=== PATIENT | female | born 1970 | race Caucasian/White ===

== ENCOUNTER → 2016-11-26 | Outpatient (CLI) | payer OTHER ==
--- NOTE | 2016-11-26 23:12 | MR ---
EXAMINATION TYPE: MR lumbar spine wo con DATE OF EXAM: 11/26/2016 9:51 PM COMPARISON: 10/06/2014 HISTORY: back and leg pain x2 years mostly left side TECHNIQUE: Multiplanar, multisequence images of the lumbar spine were acquired. Lumbar vertebra have fairly normal alignment. There is decreased signal and disc space narrowing from L3 to S1. This is more severe at L5-S1. There is a moderate posterior disc herniation at L5-S1 centr ally and towards the left side. There is bilateral neural foraminal narrowing at L5-S1 due to disc sp elizabeth narrowing. Narrowing is much worse on the left side. There is no compression fracture. Posterior elements are intact. There is no paraspinal mass. Sacroiliac joints are unremarkable. I see no focal bone destruction. There is mild posterior concentric disc bulge at L4-5.. IMPRESSION: Spondylosis in the lower lumbar spine from L3 to S1. There is posterior L5-S1 disc herniation that is increased in size compared to last MR scan. No significant spinal stenosis seen however. Stable conc entric small disc herniation posteriorly at L4-5. There is neural foraminal impingement on the left s galo more than the right at L5-S1 due to disc herniation and facet arthropathy and disc space narrowin g.
== END | disposition home or self-care (01) ==
LOC: RADMRIMAIN 21:02
PROVIDERS: ATTEND Psychiatry & Neurology Neurology
DX: M48.06 Spinal stenosis, lumbar region (principal); M51.27 Other intervertebral disc displacement, lumbosacral region; M47.817 Spondylosis without myelopathy or radiculopathy, lumbosacral region; M46.96 Unspecified inflammatory spondylopathy, lumbar region
CPT/HCPCS: 72148

== ENCOUNTER → 2017-04-09 | Outpatient (CLI) | payer BC ==
--- NOTE | 2017-04-09 08:50 | CT ---
EXAMINATION TYPE: CT abdomen pelvis w con DATE OF EXAM: 04/09/2017 COMPARISON: NONE HISTORY: 47-year-old female abdominal pain, abdominal hernia. TECHNIQUE: Contiguous axial scanning of the abdomen and pelvis following administration of 100 ml Omn ipaque 300 IV contrast. Delayed images through the kidneys and coronal/sagittal reconstructions perf ormed. CT DLP: 457.90 mGycm Automated exposure control for dose reduction was used. FINDINGS: The heart is normal size with trace anterior basilar pericardial fluid. Lung bases clear without pleu ral effusion. Very small hiatal hernia is noted. A 2.5 cm cyst along the left hepatic lobe. Otherwise, no focal liver lesion of the liver does measure large at 19.7 cm craniocaudal. The bile duct appears mildly dilated at 1.1 cm though with normal dis allen tapering. Portal venous system is patent. The gallbladder, adrenal glands, kidneys, and pancreas appear within normal limits. There is an inferior splenule and 8.9 cm enhancing lesion in the anterior spleen which seems to follo w the blood pool on both series. Findings suggest a small hemangioma. Retroaortic left renal vein. Scattered nonenlarged and borderline to mildly enlarged mesenteric lymph nodes are present measuring up to 7 mm, for example, coronal image 19. Short segments of mild circumferential colonic wall thickening suggested in the mid transverse colon, coronal image 14 probably relates to underdistention. The appendix is visualized and shows very mild thickening. 8 to 9 mm, axial image 58 and coronal imag e 19. In addition, there may be minimal adjacent fat stranding versus prominent small bowel vessels. Bladder is partially urine distended. Multiple pelvic phleboliths. Uterus appears surgically absent. Follicular change in the right ovary and a 2.4 cm dominant follicle or functional cyst within the lef t ovary. No abnormal fluid collection in the pelvis; no definite suspicious lymphadenopathy. No inguinal, femoral canal, or abdominal wall hernia is identified. There may be a very tiny neurogen ic need type hernia containing omental fat through an 8 mm wide defect of the anterior midline diaphr agm, coronal image 6, sagittal image 62, and axial image 4. Bones: Mild degenerative changes at the hips and pubic symphysis. Additional degenerative changes low er lumbar spine. No osseous destructive process. IMPRESSION: 1. MILD THICKENING OF THE APPENDIX. THERE ARE EITHER TINY ADJACENT MESENTERIC VESSELS OR MILD PERIAPP ENDICEAL FAT STRANDING. CORRELATE FOR ANY RIGHT LOWER QUADRANT PAIN TO EXCLUDE MILD APPENDICEAL INFLA MMATION. 2. MILD DILATATION OF THE BILE DUCT (1.1 CM) MAY BE NORMAL FOR THIS PATIENT. CORRELATE WITH ALKALINE PHOSPHATASE AND BILIRUBIN LEVELS. 3. SCATTERED NONENLARGED AND BORDERLINE TO MILDLY ENLARGED MESENTERIC LYMPH NODES MEASURING UP TO 7 M M LIKELY REACTIVE/POST INFLAMMATORY. 4. TINY HIATAL HERNIA AND TINY FAT-CONTAINING MORGAGNI HERNIA THROUGH AN 8 MM ANTERIOR MIDLINE DIAPHR AGMATIC DEFECT.
== END | disposition home or self-care (01) ==
LOC: RADCTMAIN 06:51
PROVIDERS: ATTEND Surgery
DX: K44.9 Diaphragmatic hernia without obstruction or gangrene (principal); K83.8 Other specified diseases of biliary tract; K38.9 Disease of appendix, unspecified; R59.0 Localized enlarged lymph nodes
CPT/HCPCS: 74177; Q9967

== ENCOUNTER → 2017-04-27 | Outpatient (CLI) | payer BC ==
--- NOTE | 2017-04-27 08:25 | US ---
EXAMINATION TYPE: US gallbladder DATE OF EXAM: 04/27/2017 COMPARISON: Correlation CT 04/09/2017 CLINICAL HISTORY: 47-year-old female K80.10 Cholecystitis. TECHNIQUE: Multiple sonographic images of the right upper quadrant are obtained. FINDINGS: Liver Length: 16.6 cm Gallbladder Wall: 0.1 cm CBD: 0.7 cm Right Kidney: 11.0 x 3.9 x 5.0 cm Pancreas: Tail partially obscured by overlying bowel gas Liver: left lobe cyst measuring 2.3 x 1.7 x 2.3cm Gallbladder: No abnormal gallbladder distention, wall thickening, pericholecystic fluid, or shadowin g calculi. Evidence for sonographic Dominguez's sign: no CBD: Mildly dilated. Right Kidney: Tiny 3 mm echogenic focus in the right upper pole. Prominent vascular reflector is poss ible as no calculus is seen on the CT scan. No hydronephrosis. IMPRESSION: 1. No evidence for cholelithiasis or acute cholecystitis. 2. Mild dilatation of the bile duct at 7 mm. Correlate with alkaline phosphatase and bilirubin levels to exclude biliary obstruction. If indicated, MRCP or ERCP can be performed.
== END | disposition home or self-care (01) ==
LOC: RADUSWWP 07:35
PROVIDERS: ATTEND Surgery
DX: K83.8 Other specified diseases of biliary tract (principal)
CPT/HCPCS: 76705

== ENCOUNTER → 2017-12-12 | Outpatient (CLI) | payer BC ==
--- NOTE | 2017-12-12 21:27 | MR ---
EXAMINATION TYPE: MR MRCP DATE OF EXAM: 12/12/2017 COMPARISON: 05/19/2017 HISTORY: Abnormal findings of liver and biliary tract TECHNIQUE: Standard multiplanar, multisequence MRCP was performed per departmental protocol without c ontrast. FINDINGS: There is redemonstration of a bilobed left hepatic simple cyst. Additional smaller hepatic lesions sc attered throughout the hepatic parenchyma appear T2 hyperintense on the prior exam 05/19/2017 compati ble with cysts although they appear less intense on today's examination. As noted on the prior there is slightly low insertion of the cystic duct. The common hepatic duct is bulbous and measures 1.1 cm, unchanged from the prior. Again this could represent a type Janet choledochal cyst. Common bile duct i s nonenlarged measuring 6 mm. However there is tapering the pancreatic head, not well appreciated on the axial images. This is unchanged from the prior. Main pancreatic duct is nondilated. Findings are unchanged from the prior. No cholelithiasis is seen. No gallbladder wall thickening. No right upper q uadrant fat stranding. The kidneys, spleen, and pancreas are unremarkable unenhanced morphology. Small splenule is seen. Adr enal glands are also unremarkable. Bowel is nondilated. No gross evidence of adenopathy. Bone marrow signal is within normal limits. Small right lower thoracic perineural cyst is incidentally seen. Ther e is mild signal dropout of the liver on out of phase imaging indicative of mild hepatic steatosis. IMPRESSION: 1. Stable bulbous enlargement of the common hepatic duct that may represent a type Janet choledochal cy st. 2. Redemonstration of multiple hepatic cysts. 3. Mild hepatic steatosis.
== END | disposition home or self-care (01) ==
LOC: RADMRIMAIN 09:45
DX: K76.0 Fatty (change of) liver, not elsewhere classified (principal); K76.89 Other specified diseases of liver; K83.8 Other specified diseases of biliary tract
CPT/HCPCS: 74181

== ENCOUNTER 2018-01-11 19:09 | Emergency (ER) | payer BC ==
[2018-01-11] MEDS ORDERED: methylPREDNISolone SOD SUCCI 125 MG/2 ML VIAL IM ONE (19:39)
[2018-01-11] MEDS ORDERED: KETOROLAC 30 MG/ML 1 ML VIAL IM STA (19:39)
--- NOTE | 2018-01-11 20:10 | ED ---
General Adult HPI - General Chief complaint: Back Pain/Injury Stated complaint: Hx BACK Sx, BACK PAIN Time Seen by Provider: 01/11/18 19:30 Source: patient, RN notes reviewed Mode of arrival: ambulatory Limitations: no limitations - History of Present Illness Initial comments: 47-year-old female since to the emergency department for a chief complaint of left hip pain. Patient describes the pain as a sharp shooting pain radiating from her left hip down to her groin into her left knee. Patient states she had a laminectomy 4 months ago. Patient states symptoms of back pain had completely resolved at that time. Patient states that she recently started working 2 weeks ago and the pain has reoccurred. Patient has contacted her surgeon and has an appointment in a couple weeks. She will be getting an MRI of the back at that time. Patient denies any bladder or bowel changes. Patient denies any IV drug abuse. Patient has no other complaints at this time including shortness of breath, chest pain, abdominal pain, nausea or vomiting, headache, or visual changes. - Related Data Home Medications Medication Instructions Recorded Confirmed [id number] [phone] 1 each PO Q6HR PRN 11/14/14 12/15/17 [Excedrin] Gabapentin [Neurontin] 300 mg PO TID 02/14/15 12/15/17 ALPRAZolam [Xanax] 0.5 mg PO BID PRN 12/15/17 12/15/17 Docusate Sodium [Dok] 100 mg PO HS 12/15/17 12/15/17 Hydrocodone/Acetaminophen 1 tab PO BID PRN 12/15/17 12/15/17 [Hydrocodon-Acetaminophn 10-325] Levothyroxine Sodium [Synthroid] 175 mcg PO DAILY 12/15/17 12/15/17 Lisinopril [Prinivil] 5 mg PO QAM 12/15/17 12/15/17 Meloxicam [Mobic] 7.5 mg PO BID 12/15/17 12/15/17 Morphine Sulfate [Ms Contin] 30 mg PO BID 12/15/17 12/15/17 Naloxegol Oxalate [Movantik] 25 mg PO HS 12/15/17 12/15/17 Sertraline [Zoloft] 100 mg PO DAILY 12/15/17 12/15/17 tiZANidine [Zanaflex] 4 mg PO BID 12/15/17 12/15/17 Previous Rx's Medication Instructions Recorded predniSONE 50 mg PO DAILY #5 tablet 01/11/18 Allergies Allergy/AdvReac Type Severity Reaction Status Date / Time No Known Allergies Allergy Verified 12/15/17 13:31 Review of Systems ROS Statement: Those systems with pertinent positive or pertinent negative responses have been documented in the HPI. ROS Other: All systems not noted in ROS Statement are negative. Past Medical History Past Medical History: Hypertension, Thyroid Disorder Additional Past Medical History / Comment(s): back pain History of Any Multi-Drug Resistant Organisms: None Reported Past Surgical History: Orthopedic Surgery, Tubal Ligation Additional Past Surgical History / Comment(s): thyroidectomy, rotator cuff repain 09/2014 Past Psychological History: Anxiety Smoking Status: Current every day smoker Past Alcohol Use History: Occasional Past Drug Use History: Marijuana General Exam Limitations: no limitations General appearance: alert, in no apparent distress Head exam: Present: atraumatic, normocephalic, normal inspection Eye exam: Present: normal appearance ENT exam: Present: normal exam, normal oropharynx, mucous membranes moist, TM's normal bilaterally, normal external ear exam Neck exam: Present: normal inspection, full ROM. Absent: tenderness, meningismus, lymphadenopathy Respiratory exam: Present: normal lung sounds bilaterally. Absent: respiratory distress, wheezes, rales, rhonchi, stridor Cardiovascular Exam: Present: regular rate, normal rhythm, normal heart sounds. Absent: systolic murmur, diastolic murmur, rubs, gallop, clicks Extremities exam: Present: full ROM (Full range of motion of the left hip including flexion and extension and abduction.), tenderness (Tenderness to the left SI joint), normal capillary refill (Refill less than 2 seconds and pedal pulse strong on Doppler in left lower extremity), other (Sensation intact in the left lower extremity to light touch.). Absent: pedal edema, joint swelling , calf tenderness (No swelling redness or erythema noted in the left calf.) Back exam: Present: full ROM (Flexion to 90 of the low back.), tenderness ( Tenderness to the left SI joint). Absent: paraspinal tenderness, vertebral tenderness Course Vital Signs 01/11/18 19:17 Temperature 98 F Pulse Rate 97 Respiratory 18 Rate Blood Pressure 206/111 O2 Sat by Pulse 97 Oximetry Medical Decision Making - Medical Decision Making 47-year-old female presents to the emergency department for a chief complaint of low back pain 2 weeks. Patient had back surgery 4 months ago. Pain was resolved. She recently started working and has had shooting pain down her left leg. Patient has been in contact with the surgeon and has an appointment scheduled. Patient will be getting an MRI through the surgeon. Patient states last time she was seen she had Toradol which helped significantly. On exam patient has full range of motion of the left hip. Tenderness to the left SI joint. No tenderness to the left hip or low back. Neurovascular intact in the left lower extremity. Patient was given Toradol and Solu-Medrol in the emergency department which helped significantly with her pain. X-ray of the lumbar spine demonstrates degenerative disc disease in the lower spine. No fracture. Previous surgery noted. Patient likely has sciatica nerve pain in the left lower extremity. Patient will continue her pain meds at home which include [place] and Mobic. Patient denies any diabetes. She will be given a prescription for steroids for the next 5 days. She will return to the emergency Department if she has worsening symptoms such as bladder or bowel changes. Otherwise she will follow up with surgeon and have MRI done. Disposition Clinical Impression: Back pain, Sciatic pain Disposition: HOME SELF-CARE Condition: Good Instructions: Acute Low Back Pain (ED), Sciatica (ED) Additional Instructions: Please continue to take your home pain medications. Take prednisone as directed. If you have worsening symptoms such as difficulty urinating return to the emergency department. Follow-up with surgeon as soon as possible. Follow up with primary care in 1-2 days. Prescriptions: predniSONE 50 mg PO DAILY #5 tablet Is patient prescribed a controlled substance at d/c from ED?: No Referrals: Hiro Suresh MD [Primary Care Provider] - 1-2 days Time of Disposition: 20:30
--- NOTE | 2018-01-11 20:18 | XR ---
EXAMINATION TYPE: XR lumbar spine 2 or 3V DATE OF EXAM: 01/11/2018 COMPARISON: September 18, 2014 HISTORY: Low back pain TECHNIQUE: 3 views FINDINGS: There is apparent L4 laminectomy. There is some narrowing of L4-5 L5-S1 disc spaces. There is no compression fracture. Sacroiliac joints are intact. IMPRESSION: Degenerative disc changes in the lower lumbar spine. No fracture. Previous surgery. Surge ry is new compared to old exam.
[2018-01-11 20:33] VITALS: BP 171/91; PULSE 55; RESP 15; TEMP 98
== END 2018-01-11 20:41 | disposition home or self-care (01) ==
LOC: EC 19:09
DX: M51.16 Intervertebral disc disorders with radiculopathy, lumbar region (principal); I10 Essential (primary) hypertension; E07.9 Disorder of thyroid, unspecified; F41.9 Anxiety disorder, unspecified; F17.200 Nicotine dependence, unspecified, uncomplicated; Z98.51 Tubal ligation status; Z98.890 Other specified postprocedural states; Z79.1 Long term (current) use of non-steroidal anti-inflammatories (NSAID); Z79.891 Long term (current) use of opiate analgesic; Z79.899 Other long term (current) drug therapy
CPT/HCPCS: 72100; 99283; 96372 ×2; J2930; J1885

== ENCOUNTER 2018-01-20 12:56 | Emergency (ER) | payer BC ==
[2018-01-20 13:01] VITALS: BP 187/105; PULSE 66; RESP 20; TEMP 97.8
[2018-01-20] MEDS ORDERED: KETOROLAC 60 MG/2 ML VIAL IM STA (13:22)
--- NOTE | 2018-01-20 13:27 | ED ---
Back Pain HPI - General Chief Complaint: Back Pain/Injury Stated Complaint: back pain Time Seen by Provider: 01/20/18 13:08 Source: patient, RN notes reviewed, old records reviewed Limitations: no limitations - History of Present Illness Initial Comments: Artie. She reports she has seen follow-up anytime soon with her surgeon again. She states have this MRI scheduled. Patient states that sometimes the pain rates and legs. She is on quite a few pain medications including morphine , meloxicam, anxiety medication, muscle relaxers. Patient has been using these medications as prescribed. She denies any history of falls. She did have a x- ray last time she was the emergency department. Denies any saddle anesthesias. Patient denies any recent fever, chills, shortness of breath, chest pain, back pain, abdominal pain, nausea vomiting, numbness or tingling, dysuria or hematuria, constipation or diarrhea, headaches or visual changes, or any other current symptoms - Related Data Home Medications Medication Instructions Recorded Confirmed [id number] [phone] 1 each PO Q6HR PRN 11/14/14 12/15/17 [Excedrin] Gabapentin [Neurontin] 300 mg PO TID 02/14/15 12/15/17 ALPRAZolam [Xanax] 0.5 mg PO BID PRN 12/15/17 12/15/17 Docusate Sodium [Dok] 100 mg PO HS 12/15/17 12/15/17 Hydrocodone/Acetaminophen 1 tab PO BID PRN 12/15/17 12/15/17 [Hydrocodon-Acetaminophn 10-325] Levothyroxine Sodium [Synthroid] 175 mcg PO DAILY 12/15/17 12/15/17 Lisinopril [Prinivil] 5 mg PO QAM 12/15/17 12/15/17 Meloxicam [Mobic] 7.5 mg PO BID 12/15/17 12/15/17 Morphine Sulfate [Ms Contin] 30 mg PO BID 12/15/17 12/15/17 Naloxegol Oxalate [Movantik] 25 mg PO HS 12/15/17 12/15/17 Sertraline [Zoloft] 100 mg PO DAILY 12/15/17 12/15/17 tiZANidine [Zanaflex] 4 mg PO BID 12/15/17 12/15/17 Previous Rx's Medication Instructions Recorded predniSONE 50 mg PO DAILY #5 tablet 01/11/18 Dexamethasone 0.75 mg PO DAILY #12 tab 01/20/18 Allergies Allergy/AdvReac Type Severity Reaction Status Date / Time No Known Allergies Allergy Verified 01/20/18 13:01 Review of Systems ROS Statement: Those systems with pertinent positive or pertinent negative responses have been documented in the HPI. ROS Other: All systems not noted in ROS Statement are negative. Past Medical History Past Medical History: Hypertension, Thyroid Disorder Additional Past Medical History / Comment(s): back pain History of Any Multi-Drug Resistant Organisms: None Reported Past Surgical History: Back Surgery, Orthopedic Surgery, Tubal Ligation Additional Past Surgical History / Comment(s): thyroidectomy, rotator cuff repain 09/2014 Past Psychological History: Anxiety Smoking Status: Current every day smoker Past Alcohol Use History: Occasional Past Drug Use History: Marijuana General Exam - General Exam Comments Initial Comments: 48-year-old female. Alert and oriented. No acute distress. Limitations: no limitations General appearance: alert, in no apparent distress Head exam: Present: atraumatic, normocephalic, normal inspection Eye exam: Present: normal appearance, PERRL, EOMI. Absent: scleral icterus, conjunctival injection, periorbital swelling ENT exam: Present: normal exam, mucous membranes moist Neck exam: Present: normal inspection Respiratory exam: Present: normal lung sounds bilaterally. Absent: respiratory distress, wheezes, rales, rhonchi, stridor Cardiovascular Exam: Present: regular rate, normal rhythm, normal heart sounds. Absent: systolic murmur, diastolic murmur, rubs, gallop, clicks GI/Abdominal exam: Present: soft, normal bowel sounds. Absent: distended, tenderness, guarding, rebound, rigid Extremities exam: Present: normal inspection, full ROM, normal capillary refill , other (Tenderness and pain with range of motion of bilateral hips.). Absent: tenderness, pedal edema, joint swelling, calf tenderness Back exam: Present: normal inspection Neurological exam: Present: alert Psychiatric exam: Present: normal affect, normal mood Skin exam: Present: warm, dry, intact, normal color. Absent: rash Course Vital Signs 01/20/18 12:58 Temperature 97.8 F Pulse Rate 66 Respiratory 20 Rate Blood Pressure 187/105 O2 Sat by Pulse 98 Oximetry Medical Decision Making - Medical Decision Making Patient is a 48-year-old female presents emergency department today she played of hip pain. She is on quite a few pain medication. Today she is requesting Toradol and steroids. She was on steroids 3 weeks ago when she was last in the emergency department. Patient states that she has caught her surgeon follow-up with an appointment but has not been able to see her soon. Patient will be given IM Toradol and a Medrol Dosepak at this time. Discussed appropriate follow-up with primary care provider. All questions answered return parameters were discussed. Disposition Clinical Impression: Back pain, Sciatic pain Disposition: HOME SELF-CARE Condition: Good Instructions: Acute Low Back Pain (ED) Additional Instructions: Patient advised to take Motrin sparingly. Continue at home pain medication. Follow-up with primary care provider as well as her surgeon. Return to emergency department if any alarming signs or occur. Prescriptions: Dexamethasone 0.75 mg PO DAILY #12 tab Is patient prescribed a controlled substance at d/c from ED?: No When asked, does pt state using other controlled substances?: No If prescribed controlled substance>3 days was MAPS reviewed?: No If opioid is for acute pain is fill amount 7 days or less?: No If Rx opioid, was Start Talking consent form obtained?: No Referrals: Hiro Suresh MD [Primary Care Provider] - 1-2 days Time of Disposition: 13:26
== END 2018-01-20 13:39 | disposition home or self-care (01) ==
LOC: EC 12:56
DX: M54.32 Sciatica, left side (principal); M54.31 Sciatica, right side; I10 Essential (primary) hypertension; E07.9 Disorder of thyroid, unspecified; F41.9 Anxiety disorder, unspecified; F17.200 Nicotine dependence, unspecified, uncomplicated; Z98.890 Other specified postprocedural states; Z79.1 Long term (current) use of non-steroidal anti-inflammatories (NSAID); Z79.891 Long term (current) use of opiate analgesic; Z79.899 Other long term (current) drug therapy
CPT/HCPCS: 99283; 96372; J1885

== ENCOUNTER → 2018-02-13 | Outpatient (CLI) | payer BC ==
--- NOTE | 2018-02-13 09:42 | MR ---
MR lumbar spine wo/w con Clinical history: Low back pain and radiculopathy. TECHNIQUE: Multiplanar, multiecho imaging of the lumbar spine was obtained without contrast on a 3 Te sla magnet. REFERENCE:None. FINDINGS: Paraspinal soft tissues are normal. There is a gentle levoscoliosis. There is a minimal retrograde listhesis of L5 on S1. Alignment is ot herwise maintained. Cord signal is maintained. The conus ends normally at the level of the inferior endplate of L1. At T12-L1, there are mild hypertrophic changes in the facets. At L1-2, there is mild, bilateral intervertebral foraminal narrowing. There are hypertrophic changes within the facets. There is mild trefoiling of the thecal sac. At L2-3, there is mild right-sided intervertebral foraminal narrowing. There is a diffuse disc displa cement. There are hypertrophic changes and capsulitis within the facets. There is mild central canal stenosis. At L3-4, there is disc space loss and disc desiccation. There is bilateral intervertebral foraminal n arrowing. There is a diffuse disc displacement. There are hypertrophic changes within the facets. At L4-5, there is disc space loss and disc desiccation. There is a broad-based disc protrusion. The i ntervertebral foramina appear well maintained. There are hypertrophic changes and capsulitis within t he facets. At L5-S1, there is a retrograde listhesis of L5 on S1. There is bilateral intervertebral foraminal na rrowing, worse on the left than the right. There is a pseudodisc. There are hypertrophic changes with in the facets. IMPRESSION: 1. DIFFUSE DEGENERATIVE DISC DISEASE AND FACET ARTHROPATHY. 2. MULTILEVEL INTERVERTEBRAL FORAMINAL NARROWING. 3. MILD RETROGRADE LISTHESIS OF L5 ON S1.
== END | disposition home or self-care (01) ==
LOC: RADMRIMAIN 08:09
PROVIDERS: ATTEND Neurological Surgery
DX: M99.73 Connective tissue and disc stenosis of intervertebral foramina of lumbar region (principal); M99.74 Connective tissue and disc stenosis of intervertebral foramina of sacral region; M43.17 Spondylolisthesis, lumbosacral region; M51.36 Other intervertebral disc degeneration, lumbar region; M48.8X6 Other specified spondylopathies, lumbar region
CPT/HCPCS: 82565; 72158; 36415; A9581

== ENCOUNTER 2018-06-01 07:54 | Emergency (ER) | payer BC ==
[2018-06-01] MEDS ORDERED: ASPIRIN 81 MG PO STA (08:09)
[2018-06-01] MEDS ORDERED: NITROGLYCERIN SL TABS 0.4 MG TAB SUBLINGUAL STA (08:09)
[2018-06-01 08:38] LABS: Basophils # (A) 0.1 k/uL (0-0.2); Basophils % (A) 1 %; Eosinophils # (A) 0.8 k/uL (0-0.7); Eosinophils % (A) 11 %; HCT 53.1 % (34.0-46.0); HGB 16.7 gm/dL (11.4-16.0); Lymphocytes # (A) 1.5 k/uL (1.0-4.8); Lymphocytes % (A) 21 %; MCH 33.4 pg (25.0-35.0); MCHC 31.4 g/dL (31.0-37.0); MCV 106.2 fL (80.0-100.0); Macrocytosis Moderate; Mean Platelet Volume 6.9; Monocytes # (A) 0.4 k/uL (0-1.0); Monocytes % (A) 6 %; Neutrophils # (A) 4.1 k/uL (1.3-7.7); Neutrophils % (A) 58 %; Platelet Count 235 k/uL (150-450); RDW 14.2 % (11.5-15.5)
[2018-06-01 08:44] LABS: ALT 24 U/L (9-52); AST 26 U/L (14-36); Albumin 4.4 g/dL (3.5-5.0); Alkaline Phosphatase 60 U/L (38-126); Anion Gap 6 mmol/L; Blood Urea Nitrogen 24 mg/dL (7-17); Calcium 9.8 mg/dL (8.4-10.2); Carbon Dioxide 24 mmol/L (22-30); Chloride 108 mmol/L (98-107); Glucose 101 mg/dL (74-99); Magnesium 2.3 mg/dL (1.6-2.3); Potassium 5.1 mmol/L (3.5-5.1); Sodium 138 mmol/L (137-145); Total Bilirubin 0.5 mg/dL (0.2-1.3); Total Protein 6.9 g/dL (6.3-8.2)
--- NOTE | 2018-06-01 08:48 | ED ---
General Adult HPI - General Chief complaint: Chest Pain Stated complaint: chest pain Time Seen by Provider: 06/01/18 08:08 Source: patient, RN notes reviewed Mode of arrival: wheelchair Limitations: no limitations - History of Present Illness Initial comments: Patient's a 48-year-old female presenting to the emergency room today with a chief complaint of chest pain that started proximal hour half ago. Patient does not that she had chest pain yesterday which was driving to work. Her states that stopped at a clinic. She states that they wanted her to come here to the hospital yesterday. States by the time she was driving back the pain had resolved and she was feeling okay she went home. She woke up this morning and when she was driving to work again started having chest pain. She describes it in the middle of the chest. She rates an 8/10. Patient states is not had pain similar to this in the past. Patient admits feeling dizzy lightheaded and nauseated. Patient denies any recent fever, chills, back pain, abdominal pain, numbness or tingling, dysuria or hematuria, constipation or diarrhea, headaches or visual changes, or any other complaints. - Related Data Home Medications Medication Instructions Recorded Confirmed Gabapentin [Neurontin] 300 mg PO TID 02/14/15 06/01/18 ALPRAZolam [Xanax] 0.5 mg PO TID 12/15/17 06/01/18 Levothyroxine Sodium [Synthroid] 175 mcg PO DAILY 12/15/17 06/01/18 Lisinopril [Prinivil] 2.5 mg PO QAM 12/15/17 06/01/18 Meloxicam [Mobic] 7.5 mg PO DAILY 12/15/17 06/01/18 Morphine Sulfate [Ms Contin] 30 mg PO BID 12/15/17 06/01/18 Sertraline [Zoloft] 100 mg PO DAILY 12/15/17 06/01/18 tiZANidine [Zanaflex] 4 mg PO BID 12/15/17 06/01/18 Hydrocodone/Acetaminophen 1 tab PO BID PRN 06/01/18 06/01/18 [Hydrocodone-Acetamin 10-300 mg] Allergies Allergy/AdvReac Type Severity Reaction Status Date / Time No Known Allergies Allergy Verified 06/01/18 08:34 Review of Systems ROS Statement: Those systems with pertinent positive or pertinent negative responses have been documented in the HPI. ROS Other: All systems not noted in ROS Statement are negative. Past Medical History Past Medical History: Hypertension, Thyroid Disorder Additional Past Medical History / Comment(s): back pain History of Any Multi-Drug Resistant Organisms: None Reported Past Surgical History: Back Surgery, Orthopedic Surgery, Tubal Ligation Additional Past Surgical History / Comment(s): thyroidectomy, rotator cuff repain 09/2014 Past Psychological History: Anxiety Smoking Status: Current every day smoker Past Alcohol Use History: Occasional Past Drug Use History: Marijuana General Exam - General Exam Comments Initial Comments: General: The patient is awake and alert, mild distress. Eye: Pupils are equal, round and reactive to light. Extra-ocular movements are intact. No nystagmus. There is normal conjunctiva bilaterally. No signs of icterus. Ears, nose, mouth and throat: There are moist mucous membranes and no oral lesions. Neck: The neck is supple, there is no tenderness or JVD. Cardiovascular: There is a regular rate and rhythm. No murmur, rub or gallop is appreciated. Respiratory: Lungs are clear to auscultation, respirations are non-labored, breath sounds are equal. No wheezes, stridor, rales, or rhonchi. Gastrointestinal: Soft, non-distended, non-tender abdomen without masses or organomegaly noted. There is no rebound or guarding present. No CVA tenderness. Musculoskeletal: Normal ROM, no tenderness. Sensation intact. Strength 5/5. Pulses equal bilaterally 2+. Neurological: A&O x 3. CN II-XII intact, There are no obvious motor or sensory deficits. Coordination appears grossly intact. Speech is normal. Skin: Skin is warm and dry and no rashes or lesions are noted. Psychiatric: Cooperative, appropriate mood & affect, normal judgment. Limitations: no limitations Course Vital Signs 06/01/18 06/01/18 06/01/18 07:59 08:35 10:24 Temperature 97.7 F Pulse Rate 63 50 L Pulse Rate [ 60 Apical] Respiratory 20 16 Rate Blood Pressure 148/84 124/62 O2 Sat by Pulse 98 98 Oximetry EKG Findings - EKG Comments: EKG Findings:: EKG performed at 0815: Shows sinus bradycardia 55 bpm. HI interval 130. Icterus 88. QT/QTc 442/422. No acute ST changes. Medical Decision Making - Medical Decision Making Patient reexamined at this time and she is currently resting comfortable. Patient did have chest pain that started this morning. Admits that she had similar pain yesterday that went away. Patient's chest x-ray today showed evidence for possible pneumo-mediastinum. CT of the chest was performed showing no pneumomediastinum. There are multiple pulmonary nodules. Patient's cardiac enzymes negative. Blood work reviewed. EKG showing no acute changes. Patient did have relief after nitro aspirin here in the emergency room will be admitted to the hospital for serial enzymes and cardiology consult. - Lab Data Result diagrams: 06/01/18 08:27 06/01/18 08:27 Lab Results 06/01/18 06/01/18 06/01/18 Range/Units 08:27 08:27 08:27 WBC 7.0 (3.8-10.6) k/uL RBC 5.00 (3.80-5.40) m/uL Hgb 16.7 H (11.4-16.0) gm/dL Hct 53.1 H (34.0-46.0) % MCV 106.2 H (80.0-100.0) fL MCH 33.4 (25.0-35.0) pg MCHC 31.4 (31.0-37.0) g/dL RDW 14.2 (11.5-15.5) % Plt Count 235 (150-450) k/uL Neutrophils % 58 % Lymphocytes % 21 % Monocytes % 6 % Eosinophils % 11 % Basophils % 1 % Neutrophils # 4.1 (1.3-7.7) k/uL Lymphocytes # 1.5 (1.0-4.8) k/uL Monocytes # 0.4 (0-1.0) k/uL Eosinophils # 0.8 H (0-0.7) k/uL Basophils # 0.1 (0-0.2) k/uL Macrocytosis Moderate PT (9.0-12.0) sec INR (<1.2) APTT (22.0-30.0) sec Sodium 138 (137-145) mmol/L Potassium 5.1 (3.5-5.1) mmol/L Chloride 108 H (98-107) mmol/L Carbon Dioxide 24 (22-30) mmol/L Anion Gap 6 mmol/L BUN 24 H (7-17) mg/dL Creatinine 0.66 (0.52-1.04) mg/dL Est GFR (CKD-EPI)AfAm >90 (>60 ml/min/1.73 sqM) Est GFR (CKD-EPI)NonAf >90 (>60 ml/min/1.73 sqM) Glucose 101 H (74-99) mg/dL Calcium 9.8 (8.4-10.2) mg/dL Magnesium 2.3 (1.6-2.3) mg/dL Total Bilirubin 0.5 (0.2-1.3) mg/dL AST 26 (14-36) U/L ALT 24 (9-52) U/L Alkaline Phosphatase 60 (38-126) U/L Total Creatine Kinase 73 (30-135) U/L CK-MB (CK-2) 0.9 (0.0-2.4) ng/mL CK-MB (CK-2) Rel Index 1.2 Troponin I <0.012 (0.000-0.034) ng/mL Total Protein 6.9 (6.3-8.2) g/dL Albumin 4.4 (3.5-5.0) g/dL 06/01/18 Range/Units 08:27 WBC (3.8-10.6) k/uL RBC (3.80-5.40) m/uL Hgb (11.4-16.0) gm/dL Hct (34.0-46.0) % MCV (80.0-100.0) fL MCH (25.0-35.0) pg MCHC (31.0-37.0) g/dL RDW (11.5-15.5) % Plt Count (150-450) k/uL Neutrophils % % Lymphocytes % % Monocytes % % Eosinophils % % Basophils % % Neutrophils # (1.3-7.7) k/uL Lymphocytes # (1.0-4.8) k/uL Monocytes # (0-1.0) k/uL Eosinophils # (0-0.7) k/uL Basophils # (0-0.2) k/uL Macrocytosis PT 10.6 (9.0-12.0) sec INR 1.1 (<1.2) APTT 26.4 (22.0-30.0) sec Sodium (137-145) mmol/L Potassium (3.5-5.1) mmol/L Chloride (98-107) mmol/L Carbon Dioxide (22-30) mmol/L Anion Gap mmol/L BUN (7-17) mg/dL Creatinine (0.52-1.04) mg/dL Est GFR (CKD-EPI)AfAm (>60 ml/min/1.73 sqM) Est GFR (CKD-EPI)NonAf (>60 ml/min/1.73 sqM) Glucose (74-99) mg/dL Calcium (8.4-10.2) mg/dL Magnesium (1.6-2.3) mg/dL Total Bilirubin (0.2-1.3) mg/dL AST (14-36) U/L ALT (9-52) U/L Alkaline Phosphatase (38-126) U/L Total Creatine Kinase (30-135) U/L CK-MB (CK-2) (0.0-2.4) ng/mL CK-MB (CK-2) Rel Index Troponin I (0.000-0.034) ng/mL Total Protein (6.3-8.2) g/dL Albumin (3.5-5.0) g/dL Disposition Clinical Impression: Chest pain Disposition: ADMITTED IP TO THIS HOSP Condition: Stable Is patient prescribed a controlled substance at d/c from ED?: No Referrals: Hiro Suresh MD [Primary Care Provider] - 1-2 days Time of Disposition: 12:04
[2018-06-01 08:54] LABS: INR 1.1 (<1.2); Partial Thromboplastin Time 26.4 sec (22.0-30.0); Prothrombin Time 10.6 sec (9.0-12.0)
[2018-06-01 08:55] LABS: Creatine Kinase 73 U/L (30-135)
[2018-06-01 09:08] LABS: Creatine Kinase MB 0.9 ng/mL (0.0-2.4); Troponin I <0.012 ng/mL (0.000-0.034)
--- NOTE | 2018-06-01 10:03 | XR ---
EXAMINATION TYPE: XR chest 2V DATE OF EXAM: 06/01/2018 COMPARISON: NONE TECHNIQUE: PA and lateral views submitted. HISTORY: Chest pain FINDINGS: The lungs are clear and there is no pneumothorax, pleural effusion, or focal pneumonia. There is ramo cency in the mediastinum recommend CT of the chest to assess for pneumomediastinum. Degenerative schmidt ge of the spine noted. Surgical clips are seen overlying the upper mediastinum. IMPRESSION: 1. Findings suspicious for pneumomediastinum recommend stat CT chest..
--- NOTE | 2018-06-01 11:11 | CT ---
EXAMINATION TYPE: CT chest wo con DATE OF EXAM: 06/01/2018 COMPARISON: Chest x-ray 06/01/2018 HISTORY: chest [id number] CT DLP: mGycm. Automated Exposure Control for Dose Reduction was Utilized. TECHNIQUE: CT scan of the thorax is performed without IV contrast. FINDINGS: LUNGS: The lungs are grossly clear, there is no concerning parenchymal mass or nodule identified. T here is no pleural effusion or pneumothorax seen. The tracheobronchial tree is patent. Linear change s in the lungs are suggestive of scar or atelectasis. There is a 3 mm nodule in the lateral segment o f the left lower lobe axial image 42. Additional pulmonary nodule right upper lobe anterior segment i mage 31 measuring 3 mm. Additional nodule medial segment right upper lobe measuring 3 mm image 26 MEDIASTINUM: Lack of IV contrast is noted to limit evaluation for mediastinal and especially hilar ad enopathy. There are no definitive greater than 1 cm hilar or mediastinal lymph nodes. No cardiomega ly or pericardial effusion is seen. No evidence of pneumomediastinum. Residual thymic tissue noted. S urgical clips are seen adjacent to the trachea. OTHER: Hypodense lesion involving the left lobe of the liver measures 1 Hounsfield unit compatible si mple cyst. Accessory spleen incidentally noted. Curvature the spine noted with mild hypertrophic schmidt ges.. IMPRESSION: 1. No evidence of pneumomediastinum. 2. Multiple less than 5 mm pulmonary nodules too small to accurately characterize. Recommend 6 month follow-up CT chest to confirm stability.
[2018-06-01] MEDS ORDERED: NITROGLYCERIN SL TABS 0.4 MG TAB SUBLINGUAL PRN (12:04)
[2018-06-01] MEDS ORDERED: HEPARIN SODIUM,PORCINE 5,000 UNIT/ML 1 ML VIAL IV ONE (12:04)
[2018-06-01] MEDS ORDERED: MORPHINE SULFATE 4 MG/ML SYRINGE IV PRN (12:04)
[2018-06-01] MEDS ORDERED: SODIUM CHLORIDE 0.9% 1,000 ML IV ONE (12:04)
[2018-06-01] MEDS ORDERED: HEPARIN SOD,PORK IN 0.45% NACL 25,000 UNIT in 0.45% NACL 1 500ML.BAG IV SCH (12:15)
[2018-06-01 13:44] VITALS: BP 129/80; PULSE 56; RESP 18; TEMP 98.4
[2018-06-02] MEDS ORDERED: ASPIRIN 325 MG TAB PO SCH (09:00)
== END 2018-06-01 12:35 | disposition other institution (70) ==
LOC: EC 07:54 → 1SOBS 12:13 → UNDOADMOB 12:13 → EC 12:35 → 1SOBS 12:41
DX: R07.9 Chest pain, unspecified (principal); R42 Dizziness and giddiness; R11.0 Nausea; I10 Essential (primary) hypertension; E07.9 Disorder of thyroid, unspecified; F41.9 Anxiety disorder, unspecified; F17.200 Nicotine dependence, unspecified, uncomplicated; Z79.1 Long term (current) use of non-steroidal anti-inflammatories (NSAID); Z79.891 Long term (current) use of opiate analgesic; Z79.899 Other long term (current) drug therapy
CPT/HCPCS: 36415; 71046; 71250; 80053; 82550; 82553; 83735; 84484; 85025; 85610; 85730; 93005; 99285

== ENCOUNTER 2019-09-09 08:35 | Emergency (ER) | payer BC ==
[2019-09-09 08:43] VITALS: BP 146/92; PULSE 68; RESP 18; TEMP 98.1
[2019-09-09] MEDS ORDERED: ORPHENADRINE 30 MG/ML 2 ML VIAL IM STA (08:56)
[2019-09-09] MEDS ORDERED: MORPHINE SULFATE 4 MG/ML SYRINGE IM STA (08:56)
--- NOTE | 2019-09-09 08:58 | ED ---
Fall HPI - General Chief Complaint: Fall Stated Complaint: fall, foot/head injury Time Seen by Provider: 09/09/19 08:44 Source: patient, RN notes reviewed, old records reviewed Mode of arrival: ambulatory - History of Present Illness Initial Comments: Patient is a 49-year-old female who presents emergency department today after an accidental fall last night around 11 PM. Patient reports that she tripped on a stair and tumbled going head over heels down approximately 10 stairs. She reports that when she landed she mainly injured the left side of her body. She plans of left foot pain, left hip pain with abrasions. She also reports that she has a contusion swelling over the left eye. She reports that she had no loss of consciousness. She denies any nausea or vomiting. She is not on blood thinners. She does report she has history of lower back pain and chronic pain. She did take her oral pain medicine as prescribed this morning. Patient states that she has no chest or abdominal pain. She reports that she was having a hard time ambulating due to the foot pain mainly over the lateral aspect of the fourth and fifth metatarsal. - Related Data Home Medications Medication Instructions Recorded Confirmed Gabapentin [Neurontin] 300 mg PO TID 02/14/15 06/01/18 ALPRAZolam [Xanax] 0.5 mg PO TID 12/15/17 06/01/18 Levothyroxine Sodium [Synthroid] 175 mcg PO DAILY 12/15/17 06/01/18 Lisinopril [Prinivil] 2.5 mg PO QAM 12/15/17 06/01/18 Meloxicam [Mobic] 7.5 mg PO DAILY 12/15/17 06/01/18 Morphine Sulfate [Ms Contin] 30 mg PO BID 12/15/17 06/01/18 Sertraline [Zoloft] 100 mg PO DAILY 12/15/17 06/01/18 tiZANidine [Zanaflex] 4 mg PO BID 12/15/17 06/01/18 Hydrocodone/Acetaminophen 1 tab PO BID PRN 06/01/18 06/01/18 [Hydrocodone-Acetamin 10-300 mg] Allergies Allergy/AdvReac Type Severity Reaction Status Date / Time No Known Allergies Allergy Verified 09/09/19 08:38 Review of Systems ROS Statement: Those systems with pertinent positive or pertinent negative responses have been documented in the HPI. ROS Other: All systems not noted in ROS Statement are negative. Past Medical History Past Medical History: Hypertension, Thyroid Disorder Additional Past Medical History / Comment(s): back pain History of Any Multi-Drug Resistant Organisms: None Reported Past Surgical History: Back Surgery, Hysterectomy, Orthopedic Surgery, Tubal Ligation Additional Past Surgical History / Comment(s): thyroidectomy, rotator cuff repain 09/2014 Past Psychological History: Anxiety, Depression Smoking Status: Current every day smoker Past Alcohol Use History: Daily Past Drug Use History: Marijuana General Exam - General Exam Comments Initial Comments: 49-year-old female. Alert and oriented. No significant distress. Limitations: no limitations Head exam: Present: atraumatic, normocephalic, normal inspection Eye exam: Present: normal appearance, PERRL, EOMI, other (Patient is left eye contusion.). Absent: scleral icterus, conjunctival injection, periorbital swelling ENT exam: Present: normal exam, mucous membranes moist Neck exam: Present: normal inspection Respiratory exam: Present: normal lung sounds bilaterally. Absent: respiratory distress, wheezes, rales, rhonchi, stridor Cardiovascular Exam: Present: regular rate, normal rhythm, normal heart sounds. Absent: systolic murmur, diastolic murmur, rubs, gallop, clicks GI/Abdominal exam: Present: soft, normal bowel sounds. Absent: distended, tenderness, guarding, rebound, rigid Extremities exam: Present: normal inspection, full ROM, normal capillary refill. Absent: tenderness, pedal edema, joint swelling, calf tenderness Left Lower Leg exam: Present: normal inspection, full ROM Ankle exam: Present: normal inspection, full ROM Foot/Toe exam: Present: normal inspection, full ROM, tenderness (Patient has tenderness over the distal fourth and fifth metatarsal. Some bruising and swelling noted.) Back exam: Present: normal inspection Neurological exam: Present: alert, oriented X3, CN II-XII intact Course Vital Signs 09/09/19 08:39 Temperature 98.1 F Pulse Rate 68 Respiratory 18 Rate Blood Pressure 146/92 O2 Sat by Pulse 97 Oximetry Procedures - Orthopedic Splinting/Casting Injury #1 Side: left Upper Extremity Immobilizer: posterior splint, Luther wrap, synthetic pre-padded splint Lower Extremity Injury Location: short leg Additional Comments: She was reevaluated neurovascularly intact. Medical Decision Making - Medical Decision Making Patient is a 49-year-old female presents emergency murmurs after fall. Multiple complaints of left-sided leg pain hip pain. She also hit her head and has a contusion over the left eye. At this time patient's imaging was otherwise unremarkable. No fractures. CT of the brain and C-spine shows no evidence of brain bleed. No evidence of orbital fracture. Patient has no specific eye pain just some swelling and bruising around the left orbital area. Patient mainly complains her left foot pain. Due to the pain with ambulation Patient was placed on a splint and advised to follow-up with orthopedic for repeat imaging in the next 7-10 days. Discussed possible occult fracture at this time. Patient is agreeable to treatment plan will comply. - Radiology Data Radiology results: report reviewed CT of the orbit showed no evidence for displaced facial bone fracture. Normal left hip and AP pelvis. Normal three-view of the left foot. Follow-up exam can be performed in 7-10 days. No acute osseous and evaluated by left tib-fib lumbar spine x-ray shows no acute fracture subluxation. Lumbar spine shows Degenerative disc disease and postop changes. CT brain and C-spine Age-related atrophy and chronic small vessel ischemic changes without acute intracranial processes at this time. No evidence for acute fracture subluxation. Disposition Clinical Impression: Fall, Facial contusion, Foot pain, left Disposition: HOME SELF-CARE Condition: Good Instructions (If sedation given, give patient instructions): Metatarsalgia (DC) Additional Instructions: Ambulate with crutches. Apply ICE to areas that are sore. Patient advised to return to ED if any alarming signs or symptoms occur. Take tylenol or motrin on top of other pain medicine. Is patient prescribed a controlled substance at d/c from ED?: No Referrals: Hiro Suresh MD [Primary Care Provider] - 1-2 days Benji Beckman DO [Medical Doctor] - 1-2 days Time of Disposition: 10:56
--- NOTE | 2019-09-09 09:43 | CT ---
EXAMINATION TYPE: CT brain declan miranda con DATE OF EXAM: 09/09/2019 COMPARISON: 12/10/2011 HISTORY: Fall downstairs, bruising to Rt eye CT DLP: 989.[address] of the brain was performed. The ventricles, basal cisterns and sulci overlying the cerebral convexities demonstrate mild enlargem ent. There is no evidence for intracranial hemorrhage or sulcal effacement. There is decreased attenuatio n about the periventricular white matter and deep white matter of both cerebral hemispheres, compatib le with chronic small vessel ischemia. No mass effects are seen. If symptoms persist consider MRI. Osseous calvarium is intact. IMPRESSION: 1. Age related atrophic and chronic small vessel ischemic change without acute intracranial process seen at this time. CT Cervical Spine: Unenhanced CT of the cervical spine was performed with bone and soft tissue window settings submitted . Coronal and sagittal reconstruction is obtained. There is normal alignment and prevertebral soft tissues. No evidence for acute cervical fracture . Scattered degenerative disc disease and spondylosis. Biapical scarring. IMPRESSION: 1. No evidence for acute fracture or subluxation of the cervical spine.
--- NOTE | 2019-09-09 09:43 | XR ---
EXAMINATION TYPE: XR tibia fibula LT DATE OF EXAM: 09/09/2019 COMPARISON: None HISTORY: Fall down stairs, pain TECHNIQUE: 2 view left foreleg FINDINGS: No acute fractures or dislocations are evident. Soft tissues appear normal. Joint spaces as visualized are normal. Inferior most medial lateral malleolus are excluded from the [id number] on the frontal projection IMPRESSION: 1. No acute osseous abnormality identified left tibia and fibula.
--- NOTE | 2019-09-09 09:44 | XR ---
EXAMINATION TYPE: XR foot complete LT DATE OF EXAM: 09/09/2019 COMPARISON: None HISTORY: Fall downstairs TECHNIQUE: Three-view left foot FINDINGS: No acute fracture or dislocation is evident. Joint spaces are preserved. Soft tissues are n ormal. IMPRESSION: 1. Normal three-view left foot. 2. Follow-up exams can be performed 7-10 days from acute trauma for continued pain.
--- NOTE | 2019-09-09 09:45 | XR ---
EXAMINATION TYPE: XR Hip LT and AP Pelvis DATE OF EXAM: 09/09/2019 COMPARISON: None HISTORY: Fall downstairs, pain TECHNIQUE: 2 view left hip supplemented with AP pelvis FINDINGS: Left femoral head articulates with the acetabulum. No acute fracture or dislocation is evid ent. Pelvis appears intact. Sacroiliac joints and symphysis pubis are normal. Right femoral head articulat es with the acetabulum. IMPRESSION: 1. Normal left hip and AP pelvis
--- NOTE | 2019-09-09 09:46 | CT ---
EXAMINATION TYPE: CT orbits wo con DATE OF EXAM: 09/09/2019 COMPARISON: None HISTORY: Fall downstairs, bruising to Rt eye CT DLP: 989.[address] of the facial bones and orbits was performed in the axial and coronal planes. Bone and soft tissue window settings are submitted. Left periorbital soft tissue swelling noted. I do not see evidence for displaced facial bone fracture or depressed facial bone fracture. The globes are intact. Paranasal sinuses are well-aerated. IMPRESSION: 1. No evidence for depressed or displaced facial bone fracture.
--- NOTE | 2019-09-09 10:11 | XR ---
Lumbar spine HISTORY: Trauma, pain 3 views of the lumbar spine There is a mild levoscoliosis present. Lumbar vertebral bodies show preserved height laminectomy schmidt ges are present in L4 and L5. Degenerative disc changes are stable. IMPRESSION: No acute fracture or subluxation. Degenerative disc disease and postop changes.
== END 2019-09-09 11:41 | disposition home or self-care (01) ==
LOC: EC 08:35
DX: S00.83XA Contusion of other part of head, initial encounter (principal); M25.572 Pain in left ankle and joints of left foot; F41.9 Anxiety disorder, unspecified; F32.9 Major depressive disorder, single episode, unspecified; I10 Essential (primary) hypertension; E07.9 Disorder of thyroid, unspecified; F17.200 Nicotine dependence, unspecified, uncomplicated; Z79.890 Hormone replacement therapy; Z79.1 Long term (current) use of non-steroidal anti-inflammatories (NSAID); Z79.899 Other long term (current) drug therapy; W01.0XXA Fall on same level from slipping, tripping and stumbling without subsequent striking against object, initial encounter
CPT/HCPCS: 72100; 73502; 73590; 73630; 72125; 70450; 70480; 99284; 96372 ×2; 29515; J2270; J2360

== ENCOUNTER 2023-01-18 08:24 | Emergency (ER) | payer BC, OTHER ==
[2023-01-18 08:29] VITALS: BP 160/101; PULSE 66; RESP 18; TEMP 98.2
--- NOTE | 2023-01-18 08:58 | ED ---
ENT HPI - General Chief complaint: Extremity Problem,Nontraumatic Stated complaint: L side face swelling Time Seen by Provider: 01/18/23 08:32 Source: patient, RN notes reviewed Mode of arrival: ambulatory Limitations: no limitations - History of Present Illness Initial comments: This is a 53-year-old female who presents to the emergency department for c oncerns of left-sided facial swelling. She recently started taking magnesium and tumeric, and last night around 10 PM after she took the medications, she started to notice pain and swelling to the left side of her face and neck. States that when she took them, she turned her head to the left to make swallowing them easier. She's never had this problem when taking the supplements before. The swelling has started to improve since last night. She is concerned about an underlying infection. States that her grandchildren are not vaccinated, which concerns her, and she wants to make sure something serious is not going on. Denies any dental pain. She did just have her teeth cleaned a month ago and was not found to have any cavities. Denies any fevers, chills, sore throat, cough, dyspnea, chest pain, palpitations, abdominal pain, nausea, vomiting, diarrhea, back pain, or headaches. MD complaint: other (left sided facial swelling) - Related Data Home Medications Medication Instructions Recorded Confirmed ALPRAZolam [Xanax] 0.5 mg PO BID PRN 12/15/17 12/20/20 Levothyroxine Sodium [Synthroid] 175 mcg PO DAILY 12/15/17 12/20/20 Sertraline [Zoloft] 100 mg PO BID 12/15/17 12/20/20 lisinopriL [Prinivil] 5 mg PO QAM 12/15/17 12/20/20 tiZANidine [Zanaflex] 4 mg PO BID 12/15/17 12/20/20 Ergocalciferol [Vitamin D2 (1250 50,000 unit PO WEEKLY 12/20/20 Mcg = 28600 Iu)] HYDROcodone/APAP 10-325MG [[place] 1 tab PO BID PRN 12/20/20 10-325] Morphine Sulfate 15 mg PO HS 12/20/20 Morphine Sulfate 30 mg PO QAM 12/20/20 Allergies Allergy/AdvReac Type Severity Reaction Status Date / Time No Known Allergies Allergy Verified 01/18/23 08:29 Review of Systems ROS Statement: Those systems with pertinent positive or pertinent negative responses have been documented in the HPI. ROS Other: All systems not noted in ROS Statement are negative. Past Medical History Past Medical History: Hypertension, Thyroid Disorder Additional Past Medical History / Comment(s): HERNIATED DISCS WITH BACK PAIN., HX OF GOITER , HEMORRHOIDS, POSTIVE COLOGARD. History of Any Multi-Drug Resistant Organisms: None Reported Past Surgical History: Orthopedic Surgery Additional Past Surgical History / Comment(s): Laminectomy., thyroidectomy, rotator cuff repair 09/2014 Past Anesthesia/Blood Transfusion Reactions: No Reported Reaction Past Psychological History: Anxiety, Depression Smoking Status: Heavy tobacco smoker Past Alcohol Use History: Daily Past Drug Use History: Marijuana - Past Family History Mother Family Medical History: No Reported History General Exam General appearance: alert, in no apparent distress Head exam: Present: atraumatic ENT exam: Present: other (Mild fullness to the left side of the face and neck. Minor tenderness. No palpable dental abscess. There is no elevation of the tongue or swelling to the floor the mouth.) Respiratory exam: Present: normal lung sounds bilaterally. Absent: respiratory distress, wheezes, rales, rhonchi, stridor Cardiovascular Exam: Present: regular rate, normal rhythm, normal heart sounds. Absent: systolic murmur, diastolic murmur, rubs, gallop, clicks Neurological exam: Present: alert, oriented X3, CN II-XII intact Psychiatric exam: Present: normal affect, normal mood Skin exam: Present: warm, dry, intact, normal color. Absent: rash Course Vital Signs 01/18/23 01/18/23 08:26 10:02 Temperature 98.2 F Pulse Rate 66 Respiratory 18 18 Rate Blood Pressure 160/101 O2 Sat by Pulse 98 Oximetry Medical Decision Making - Medical Decision Making This is a 53-year-old female who presents to the emergency department for left- sided facial pain and swelling. Was pt. sent in by a medical professional or institution? @ -No Did you speak to anyone other than the patient for history? @ -No Did you review nursing and triage notes? @ -Yes, and I agree, it is accurate with regards to the patient's symptoms. Were old charts reviewed? @ -No Differential Diagnosis? @ -Differential Facial Swelling: Dental abscess, salivary gland tumor, lymphadenopathy, cyst, this is not meant to be an all-inclusive list. EKG interpreted by me (3pts min.)? @ -Not obtained X-rays interpreted by me (1pt min.)? @ -Not obtained CT interpreted by me (1pt min.)? @ -Computed tomography scan of the facial bones and neck obtained. My interpretation identifies no evidence of soft tissue swelling or abscess formation. U/S interpreted by me (1pt. min.)? @ -Not obtained What testing was considered but not performed? (CT, X-rays, U/S, labs)? Why? @ -None What meds were considered but not given? Why? @ -None Did you discuss the management of the patient with other professionals? @ -No Did you reconcile home meds? @ -No Was smoking cessation discussed for >3mins.? @ -No Was critical care preformed (if so, how long)? @ -No Were there social determinants of health that impacted care today? How? (Homelessness, low income, unemployed, alcoholism, drug addiction, transportation, low edu. Level, literacy, decrease access to med. care, residential, rehab)? @ -No Was there de-escalation of care discussed even if they declined? (Discuss DNR or withdrawal of care, Hospice)? @ -No What co-morbidities impacted this encounter? (DM, HTN, Smoking, COPD, CAD, Cancer, CVA, Hep., AIDS, mental health diagnosis, sleep apnea, morbid obesity)? @ -None Was patient admitted / discharged? @ -Left AMA. Physical examination revealed mild fullness of the left side of the face. We subsequently obtained a computed tomography scan of the facial bones and soft tissue neck. I did recommend an IV for better evaluation with contrast, however the patient declined. She also declined any pain medication. While waiting for the computed tomography scan, patient requested to leave AMA. She said that she did not believe anything was wrong. AMA forms were subsequently signed. After the patient left I did review the results of the CT scans, which were found to be negative for any acute process. Undiagnosed new problem with uncertain prognosis? @ -None Drug Therapy requiring intensive monitoring for toxicity (Heparin, Nitro, Insulin, Cardizem)? @ -None Were any procedures done? @ -None Diagnosis/symptom? @ -Left sided facial swelling Acute, or Chronic, or Acute on Chronic? @ -Acute Uncomplicated (without systemic symptoms) or Complicated (systemic symptoms)? @ -Uncomplicated Side effects of treatment? @ -None Exacerbation, Progression, or Severe Exacerbation] @ -Not applicable Poses a threat to life or bodily function? @ -No This case was discussed in detail with the attending ED physician, Dr. Bonner. Presentation, findings, and treatment plan discussed in detail as well. - Radiology Data Radiology results: report reviewed, image reviewed Disposition Clinical Impression: Swelling of left side of face Disposition: LEFT AGAINST MEDICAL ADVICE Referrals: Mingo Ferguson DO [Primary Care Provider] - 1-2 days
--- NOTE | 2023-01-18 10:16 | CT ---
EXAMINATION TYPE: CT soft tissue neck wo con DATE OF EXAM: 01/18/2023 COMPARISON: None HISTORY: Lt side neck swelling hx thyroidectomy CT DLP: 351 mGycm CONTRAST: Patient injected with 0 mL of Isovue 300. TECHNIQUE: Axial images at 3 mm thick sections. Reconstructed images in the coronal plane and sagitt al plane are reviewed. FINDINGS: Limited CT sections are obtained the lung apices. The lung apices appear clear. CT neck: The torus tubarius and fossa of Rosenmuller are normal. Brick Dropper spaces are normal. Para nasal sinuses and mastoid air cells are clear. Parotid glands appear normal and symmetrical. Submandibular glands, are normal. Parapharyngeal spac es are normal. There are scattered small lymph nodes present bilaterally. Suspicious enlargement is not evident. The hypopharynx appears within normal limits. Vocal cord level appear symmetrical. Patient is status post thyroidectomy. Surgical clips are present. No suspicious masses or fluid colle ctions at the thyroid bed are evident. Osseous structures are normal. IMPRESSIONS: 1. No suspicious acute changes soft tissue neck CT
--- NOTE | 2023-01-18 10:20 | CT ---
EXAMINATION TYPE: CT facial bones wo con DATE OF EXAM: 01/18/2023 COMPARISON: Left-sided facial pain and swelling HISTORY: LT side facial swelling CT DLP: 421.2 mGycm CONTRAST: 0 mL of Isovue 300 The paranasal sinuses are examined in the axial plane at 2 mm thick sections. Reconstructed images i n the coronal plane were obtained. There is dental amalgam scatter artifact Minimal mucosal thickening is present left maxillary sinus. The ethmoid air cells are clear. The sp henoid sinuses are clear. The frontal sinuses are clear. The septum is evaluated. There is septal deviation to the left. The ostiomeatal units are patent. Multiple scattered small lymph nodes are present bilaterally. No suspicious enlarged lymphadenopathy is evident. IMPRESSIONS: 1. No suspicious acute changes CT facial bones.
== END 2023-01-18 10:02 | disposition left against medical advice (07) ==
LOC: EC 08:24
DX: R22.0 Localized swelling, mass and lump, head (principal); I10 Essential (primary) hypertension; E07.9 Disorder of thyroid, unspecified; F32.A Depression, unspecified; F41.9 Anxiety disorder, unspecified; F17.200 Nicotine dependence, unspecified, uncomplicated; F12.90 Cannabis use, unspecified, uncomplicated; Z79.890 Hormone replacement therapy; Z79.899 Other long term (current) drug therapy; Z53.29 Procedure and treatment not carried out because of patient's decision for other reasons
CPT/HCPCS: 70486; 70490; 99283

== ENCOUNTER → 2024-11-02 | Outpatient (CLI) | payer MEDICARE ==
--- NOTE | 2024-11-02 08:36 | MM ---
Reason for Exam: Clinical finding. Last mammogram was performed 10 year(s) and 6 month(s) ago. Indicated Problems: Bloody discharge of the right side for 1 Week(s). Patient History: Menarche at age 10. First Full-Term at age 21. Hysterectomy at age 44. Postmenopausal. Patient has history of breast feeding. Maternal grandmother had breast cancer, age 80. Risk Values: Mary 5 year model risk: 1.1%. NCI Lifetime model risk: 7.2%. Prior Study Comparison: 04/27/2014 Bilateral Screening Mammogram, [facility]. Tissue Density: There are scattered areas of fibroglandular density. Findings: Analyzed By CAD. No distinct nodule or mass. No distortion. No suspicious microcalcifications. Manage the patient clinically with regards of bloody nipple discharge. If symptoms persist consider whole breast ultrasound or MRI. Overall Assessment: Benign, BI-RAD 2 Management: Screening Mammogram of both breasts in 1 year. . Results were given to the patient verbally at the time of exam. Patient should continue monthly self-breast exams. A clinical breast exam by your physician is recommended on an annual basis. This exam should not preclude additional follow-up of suspicious palpable abnormalities. Note on Mary scores and lifetime risk: 1. A Mary score greater than 3% is considered moderate risk. If this is the case, consider specialist referral to assess eligibility for a risk reducing agent. 2. If overall lifetime risk for the development of breast cancer is 20% or higher, the patient may qualify for future screening with alternating mammogram and breast MRI. [facility], , 11/02/2024 8:33 AM. Electronically signed and approved by: Jose Francisco Salinas M.D. Radiologis
== END | disposition home or self-care (01) ==
LOC: RADMAMWWP 07:59
PROVIDERS: ATTEND Family Medicine
DX: N64.52 Nipple discharge (principal); R92.323 Mammographic fibroglandular density, bilateral breasts; Z78.0 Asymptomatic menopausal state; Z80.3 Family history of malignant neoplasm of breast
CPT/HCPCS: 77062; 77066